=== PATIENT | female | born 1950 | race Caucasian/White ===

== ENCOUNTER → 2017-02-18 | Outpatient (CLI) | payer MEDICARE, BC, OTHER ==
[~2017-02-18] MED LIST: AMBI10TA PO; ASPI81 PO
[2017-02-18 10:58] LABS: AUTOMATED NEUTROPHIL # 2.3 TH/MM3 (1.8-7.7); BASOPHIL % 0.6 % (0.0-2.0); EOSINOPHIL # 0.1 TH/MM3 (0-0.4); EOSINOPHIL % 1.3 % (0.0-4.0); HEMATOCRIT 37.5 % (35.0-46.0); HEMO FLAGS DIFF FINAL; LYMPH % 41.9 % (9.0-44.0); LYMPHOCYTE # 1.9 TH/MM3 (1.0-4.8); MEAN CELL VOLUME 91.1 FL (80.0-100.0); MEAN CORPUSCULAR HEMOGLOBIN 29.9 PG (27.0-34.0); MEAN CORPUSCULAR HGB CONC 32.8 % (32.0-36.0); MONO % 6.2 % (0.0-8.0); PLATELET COUNT 179 TH/MM3 (150-450); RED BLOOD COUNT 4.11 MIL/MM3 (4.00-5.30); RED CELL DISTRIBUTION WIDTH 12.5 % (11.6-17.2); WHITE BLOOD COUNT 4.6 TH/MM3 (4.0-11.0)
[2017-02-18 11:28] LABS: AST (GOT) 17 U/L (15-37); BLOOD UREA NITROGEN 14 MG/DL (7-18); GLOMERULAR FILTRATION RATE 75 ML/MIN (>89); GLUCOSE,FASTING 91 MG/DL (74-99); POTASSIUM 3.7 MEQ/L (3.5-5.1); SODIUM (NA) 141 MEQ/L (136-145)
[2017-02-18 11:29] LABS: ALT (GPT) 17 U/L (10-53); ANION GAP 6 MEQ/L (5-15); BICARBONATE 25.7 MEQ/L (21.0-32.0); CHLORIDE 109 MEQ/L (98-107)
[2017-02-18 11:39] LABS: ALKALINE PHOSPHATASE 50 U/L (45-117); THYROXINE (T4) 6.4 MCG/DL (4.8-13.9); TOTAL BILIRUBIN ADULT 0.5 MG/DL (0.2-1.0)
--- NOTE | 2017-02-18 11:51 | EKG ---
Date Performed: 02/18/2017 Time Performed: 11:25:49 PTAGE: 66 years EKG: SINUS BRADYCARDIA BORDERLINE ECG PREVIOUS TRACING : 02/22/2009 14.05 Compared to previous tracing, heart rate has decreased. DOCTOR: Marcelino Cobian Interpretating Date/Time 02/18/2017 11:50:25
== END ==
LOC: CLAB 10:28
PROVIDERS: ATTEND Psychiatry & Neurology Psychiatry
DX: F33.1 Major depressive disorder, recurrent, moderate (principal); R00.1 Bradycardia, unspecified
CPT/HCPCS: 36415; 80053; 84436; 84443; 85025; 93005